=== PATIENT | male | born 1960 | race Caucasian/White ===

== ENCOUNTER 2016-08-18 11:07 | Emergency (ER) | payer OTHER ==
[~2016-08-18] VITALS: Ht 180.3 cm; Wt 111.1 kg
[2016-08-18] MEDS ORDERED: AMLODIPINE BESYL5 M1 PO (11:56)
[2016-08-18] MEDS ORDERED: ALLOPURINOL100 M1 PO (11:56)
--- NOTE | 2016-08-18 12:09 | ED HAND/WRIST INJURY COMPLAINT ---
History of Present Illness General Chief Complaint: Laceration Procedure Stated Complaint: PT CUT MIDDLE FINGER ON THE RT HAND Source: patient Exam Limitations: no limitations Vital Signs & Intake/Output Vital Signs & Intake/Output Vital Signs Date Time Temp Pulse Resp B/P B/P Pulse O2 O2 Flow FiO2 Mean Ox Delivery Rate 08/18 1126 98.3 67 20 164/83 98 Room Air Allergies Coded Allergies: No Known Allergies (08/18/16) Reconcile Medications Allopurinol 100 MG TABLET 1 TAB PO DAILY GOUT (Reported) Amlodipine Besylate 5 MG TABLET 1 TAB PO DAILY HEART (Reported) Amoxicillin/Potassium Clav (Augmentin 875-125 Tablet) 875 MG-125 MG TABLET 1 TAB PO BID PROPHYLAXIS Hydrocodone/Acetaminophen ([place] 5-325 Tablet) 5 MG-325 MG TABLET 1 TAB PO Q6HR PRN PAIN Ibuprofen 600 MG TABLET 1 TAB PO TID PRN PAIN with food Triage Note: PT TO ED FOR LAC TO MIDDLE FINGER RIGHT HAND, FROM A PIECE OF METAL DOOR. PT WAS WEARING GLOVES AND STATES THE TIP OF FINGER IS STILL IN THE GLOVE. PT WENT TO WALK IN, A DRESSING WAS PLACED AND PT SENT TO ED. PT STATES LAST TETANUS A FEW YEARS AGO. STATES ALL OF FINGER TIP INCLUDING FINGER NAIL IS GONE. SITE NOT SEEN IN TRIAGE. Triage Nurses Notes Reviewed? yes Occurred: just prior to arrival Duration: hour(s): (1) Timing: no prior history Injury Environment: home Severity: moderate Severity Numbers: 7 Pain/Injury Location: Right: 3rd finger. Context: blow, laceration Method of Injury: direct blow, laceration Modifying Factors: Improves With: immobilization. Worsens With: movement. HPI: Patient is a 56-year-old male presenting to the emergency department with chief complaint of right middle finger crush injury and distal tip avulsion just prior to arrival. Patient reports that he slammed it in a metal door. Pain is only 7 out of 10 achy and throbbing worse with palpation. Reports intermittent numbness and tingling to the distal tip of the finger. Denies any other injury. He is currently up-to-date with his tetanus immunization. Denies any nausea or vomiting fevers or chills. He tried going to the walk-in clinic with a told him to come here for evaluation because of the extensive that injury. (ASHOK ALBERTO) Past History Travel History Traveled to [place] past 21 day No Medical History Any Pertinent Medical History? see below for history Cardiovascular: hypertension Musculoskeletal: gout Tetanus Vaccine: Surgical History Surgical History: non-contributory Psychosocial History What is your primary language Pakistani Tobacco Use: Never used ETOH Use: occasional use Illicit Drug Use: denies illicit drug use Family History Hx Contributory? No (ASHOK ALBERTO) Review of Systems Review of Systems Constitutional: Reports: no symptoms. Comments Review of systems: See HPI, All other systems negative. Constitutional, no chills fever or weight loss HEENT: No visual changes no sore throat no congestion Cardiovascular: No chest pain ,palpitation Skin, no jaundice no rashes Respiratory: No dyspnea cough sputum or hemoptysis GI: No nausea no vomiting Muscle skeletal: no back pain, no neck pain, Neurologic:NO FRAUSTO Psych: No stress anxiety Immunology: No splenectomy or history of AIDS (ASHOK ALBERTO) Physical Exam Physical Exam General Appearance: well developed/nourished, no apparent distress, alert, awake , comfortable Hand Left: normal inspection, normal range of motion Hand Right: 3rd finger (DISTAL TIP AVULSION) Comments: Well-developed well-nourished person in no acute distress HEENT: Nose is atraumatic. Neck: NORMAL INSPECTION Back: Nontender Cardiovascular: Regular rate and rhythms no murmurs rubs or gallops, normal JVP Respiratory: Chest nontender. No respiratory distress.breath sounds clear to auscultation bilaterally Extremity: No edema, pulses are 2+ bilaterally. FULL ROM OF ALL DIGITS. Neuro: Alert oriented x3, motor sensory normal Skin: Skin avulsion of the distal tip of the right third digit, the nail has been removed, mild active bleeding. Psych: Mood and affect is normal, memory and judgment is normal. (ASHOK ALBERTO) Progress Differential Diagnosis: contusion, dislocation, fracture, sprain, FINGER AVULSION, TUFT FRACTURE, OPEN FRACTURE Plan of Care: Current Medications Sig/Parish Start time Last Medication Dose Stop Time Status Admin Ampicillin Sodium/ 3,000 MG ONCE ONE 08/18 1245 AC 08/18 Sulbactam Sodium 08/18 1314 1302 (Unasyn) Sodium Chloride 100 ML (Normal Saline 0.9%) Diagnostic Imaging: Viewed by Me: Radiology Read. Discussed w/RAD: Radiology Read. Radiology Impression: PATIENT: SHANEL DILLON PRESENT AGE: 56 PATIENT ACCOUNT NO: [id number] : 56 LOCATION: [facility] ORDERING PHYSICIAN: ASHOK MIX SERVICE DATE: 08/18/168164 EXAM TYPE: RAD - XRY-FINGERS, RIGHT EXAMINATION: XR FINGER, RIGHT CLINICAL INFORMATION: Finger amputation. Rule out bone involvement. COMPARISON: None TECHNIQUE: Three views of the right long finger. FINDINGS: The distal cortex of the long finger distal phalangeal tuft is absent as seen on the lateral view. Remainder of the bone is intact and nondisplaced. There is a soft tissue defect at the site of amputation. No radiodense foreign bodies. Gauze material is present over the site of amputation. 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 IMPRESSION: Amputation of the distal aspect of the long finger distal phalanx with involvement of the distal cortex of the distal phalangeal tuft. No radiodense foreign bodies. Comments: Patient medicated with IV Unasyn prior to discharge. He will go home on Augmentin and follow-up with hand specialist. (ASHOK ALBERTO) Departure Departure Time of Disposition: 1306 Disposition: HOME OR SELF CARE Condition: Stable Clinical Impression Primary Impression: Open fracture Referrals: CLIFF RODRIGUEZ,KENYETTA AMEZQUITA MD,WESLEY (PCP/Family) Additional Instructions: Follow-up with the hand specialist call today to make an appointment. Take antibiotics as prescribed. Take ibuprofen as prescribed elbow with pain and inflammation. Return for worsening symptoms or concerns. Keep dressing on until follow-up with the hand specialist. Departure Forms: Customer Survey General Discharge Information Prescriptions: Current Visit Scripts Amoxicillin/Potassium Clav (Augmentin 875-125 Tablet) 1 TAB PO BID #20 TAB Ibuprofen 1 TAB PO TID PRN PAIN #30 TAB with food Hydrocodone/Acetaminophen ([place] 5-325 Tablet) 1 TAB PO Q6HR PRN PAIN #10 TAB (ASHOK ALBERTO) PA/PATHOLOGY MANAGER Co-Sign Statement Statement: ED Attending supervision documentation- [] I saw and evaluated the patient. I have also reviewed all the pertinent lab results and diagnostic results. I agree with the findings and the plan of care as documented in the PA's/PATHOLOGY MANAGER's documentation. [X] I have reviewed the ED Record and agree with the PA's/PATHOLOGY MANAGER's documentation. [] Additions or exceptions (if any) to the PAs/PATHOLOGY MANAGER's note and plan are summarized below: [] (REJI ADAMS DO) Procedures Splinting Location: RIGHT MIDDLE FINGER Manual Alignment Performed: No Pre-Made Type: metal Splint: FINGER SPLINT Splint Applied By: splint applied by me Pre-Proc Neuro Vasc Exam: normal Post-Proc Neuro Vasc Exam: normal Progress: Patient tolerated procedure well. Additional Procedures Additional Procedures: WOUND CARE Progress: Wound irrigated extensively with 1 L normal saline and Betadine after digital block performed with 1% lidocaine without epi. Used 4 mL of lidocaine for this digital block. Patient tolerate the procedure well. Xeroform and bacitracin placed over the distal tip of the finger avulsion. Alana dressing along with finger wrap and splint placed. (PETE MIX,ASHOK)
[2016-08-18] MEDS ORDERED: IBUPROFEN600 M1 PO (12:43)
[2016-08-18] MEDS ORDERED: AUGMENTIN 875-1 EACH PO (12:43)
[2016-08-18] MEDS ORDERED: NORCO 5-325 TA1 EACH PO (12:45)
--- NOTE | 2016-08-18 13:05 | RADIOLOGY REPORT ---
EXAMINATION: XR FINGER, RIGHT CLINICAL INFORMATION: Finger amputation. Rule out bone involvement. COMPARISON: None TECHNIQUE: Three views of the right long finger. FINDINGS: The distal cortex of the long finger distal phalangeal tuft is absent as seen on the lateral view. Remainder of the bone is intact and nondisplaced. There is a soft tissue defect at the site of amputation. No radiodense foreign bodies. Gauze material is present over the site of amputation. 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 IMPRESSION: Amputation of the distal aspect of the long finger distal phalanx with involvement of the distal cortex of the distal phalangeal tuft. No radiodense foreign bodies.
[2016-08-18 13:14] VITALS: BP 144/80
== END 2016-08-18 13:39 ==
LOC: ERH 11:07
DX: S62.632B Displaced fracture of distal phalanx of right middle finger, initial encounter for open fracture (principal); W23.0XXA Caught, crushed, jammed, or pinched between moving objects, initial encounter; Y93.9 Activity, unspecified; Y92.9 Unspecified place or not applicable
CPT/HCPCS: 73140-RT; 96374